=== PATIENT | female | born 1995 | race Caucasian/White ===

== ENCOUNTER 2024-03-21 04:00 | Inpatient (IN) | payer OTHER ==
[2024-03-21] MEDS: Lactated Ringer's 1,000 ML IV SCH (20:15)
[2024-03-21 20:23] VITALS: BMI 27.9
[2024-03-21] MEDS ORDERED: Lidocaine 1% (PF) 30 ML VIAL SC PRN (20:28)
[2024-03-21] MEDS ORDERED: HYDROcodone/Acetaminophen 5/325 mg Tablet PO PRN ×2 (20:28)
[2024-03-21] MEDS ORDERED: hydrALAZINE 20 MG/ML VIAL SLOW IVP PRN (20:28)
[2024-03-21] MEDS ORDERED: Ibuprofen 800 MG TAB PO PRN (20:28)
[2024-03-21] MEDS ORDERED: Ondansetron PF 4 MG/2 ML Vial IVP PRN (20:28)
[2024-03-21] MEDS ORDERED: Promethazine HCl 25 MG/ML VIAL IM PRN (20:28)
[2024-03-21 20:34] LABS: Hematocrit 35.9 % (34.9-44.5); Hemoglobin 12.3 g/dL (12.0-15.5); Mean Corpuscular HGB CONC 34.3 g/dL (32.0-36.0); Mean Corpuscular Hemoglobin 31.9 pg (27.0-33.0); Mean Platelet Volume 10.4 fl (7.4-10.4); Platelet Count 205 10x3/uL (150-450); RBC Distribution Width 13.8 % (11.5-14.5); Red Blood Cell (RBC) Count 3.86 10x6/uL (3.90-5.03); White Blood Cell (WBC) Count 10.6 10x3/uL (3.5-10.5)
[2024-03-21] MEDS: Misoprostol 100 MCG TAB VAG SCH (21:07)
[2024-03-21 21:53] LABS: HBsAg Index 0.19 S/CO (0-0.99); Hep B Surf Ag - L&D Non-Reactive S/CO (NonReactive)
[2024-03-21 21:54] LABS: Syphilis Antibody Nonreactive (Nonreactive); Syphilis Antibody Index 0.06 S/CO (<1.00 Non-Reactive)
[2024-03-22] MEDS ORDERED: Misoprostol 100 MCG TAB VAG SCH
[2024-03-22] MEDS: fentaNYL 50 mcg/mL 1 mL Vial SLOW IVP PRN (04:32)
[2024-03-22] MEDS: fentaNYL/Ropivacaine Epidural 100 ML ONE (05:26)
[2024-03-22] MEDS ORDERED: Lactated Ringer's 500 ML IV PRN (05:38)
[2024-03-22] MEDS ORDERED: ePHEDrine Sulfate 50 MG/10 ML VIAL SLOW IVP PRN (05:38)
[2024-03-22] MEDS ORDERED: Promethazine HCl 25 MG/ML VIAL IM PRN ×3 (05:38→17:56)
[2024-03-22] MEDS ORDERED: diphenhydrAMINE 50 MG/ML VIAL IVP PRN ×2 (05:38→15:15)
[2024-03-22] MEDS ORDERED: Acetaminophen 325 MG TAB PO PRN (05:38)
[2024-03-22] MEDS ORDERED: Ondansetron PF 4 MG/2 ML Vial IVP PRN ×5 (05:38→17:56)
[2024-03-22] MEDS ORDERED: Naloxone HCl 0.4 mg/ml Vial IVP PRN ×4 (05:38→15:15)
[2024-03-22] MEDS ORDERED: Moisturizing Cream (Eucerin) 113 GM JAR TOP PRN ×2 (05:38→15:15)
[2024-03-22] MEDS ORDERED: Communication Order-Pharmacy FS SCH ×2 (05:45→15:15)
[2024-03-22] MEDS ORDERED: fentaNYL 2 mcg/Ropivacaine 0.2% Epidural 100 ML CADD EPIDURAL SCH (05:45)
[2024-03-22] MEDS: Oxytocin 30 units/NS 500 ML 500 ML IV SCH ×2 (11:20→16:02)
[2024-03-22] MEDS: CEFAZOLIN 2 GM VIAL ONE (14:11)
[2024-03-22] MEDS: Famotidine/PF 20 mg/2ml Vial ONE (14:20)
[2024-03-22] MEDS: Oxytocin 10 UNITS/ML VIAL ONE ×2 (14:20→19:35)
[2024-03-22] MEDS ORDERED: Ketorolac Tromethamine 30 MG (1 mL) VIAL IVP PRN (15:15)
[2024-03-22] MEDS ORDERED: Naloxone HCl 0.4 mg/ml Vial IV PRN ×2 (15:15→17:56)
[2024-03-22] MEDS ORDERED: fentaNYL 50 mcg/mL 1 mL Vial SLOW IVP PRN (15:15)
[2024-03-22] MEDS ORDERED: Ketorolac Tromethamine 30 MG (1 mL) VIAL IVP SCH (15:30)
[2024-03-22] MEDS: Meperidine HCl/PF 25 MG (1 mL) VIAL SLOW IVP PRN (16:57)
[2024-03-22] MEDS ORDERED: Oxytocin 30 units/NS 500 ML 500 ML IV SCH (17:25)
[2024-03-22] MEDS ORDERED: diphenhydrAMINE 25 MG CAP PO PRN (17:25)
[2024-03-22] MEDS ORDERED: Lanolin Ointment 7 GM TUBE TOP PRN (17:25)
[2024-03-22] MEDS ORDERED: Bisacodyl 10 MG SUPP PR PRN (17:25)
[2024-03-22] MEDS ORDERED: hydrALAZINE 20 MG/ML VIAL SLOW IVP PRN (17:25)
[2024-03-22] MEDS: HYDROmorphone 0.5 MG/0.5 ML SYRINGE SLOW IVP PRN (18:11)
[2024-03-22] MEDS: Boostrix 0.5 ML (Tdap) VIAL (>/=7 yrs of age) IM ONE (18:15)
[2024-03-22] MEDS: Methylergonovine 0.2 MG/ML VIAL IM SCH (18:48)
[2024-03-22] MEDS: Tranexamic Acid 1,000 MG/10 ML VIAL IVP SCH (18:50)
[2024-03-22] MEDS: Chloroprocaine 3% PF 20 ML VIAL ONE (19:34)
[2024-03-22] MEDS: Dexamethasone 4 mg/ml Vial ONE (19:34)
[2024-03-22] MEDS: Morphine PF 10 MG/10 ML VIAL ONE (19:34)
[2024-03-22] MEDS: Azithromycin 500 MG VIAL ONE (19:35)
[2024-03-22] MEDS: Ondansetron PF 4 MG/2 ML Vial ONE (19:35)
[2024-03-22] MEDS: Tranexamic Acid 1,000 MG/10 ML VIAL ONE ×2 (19:36)
[2024-03-22] MEDS: Methylergonovine 0.2 MG/ML VIAL ONE (19:37)
[2024-03-22] MEDS: Docusate 100 MG CAP PO SCH (21:02)
[2024-03-22] MEDS: Ferrous Sulfate 325 MG TAB PO SCH (21:03)
[2024-03-22] MEDS ORDERED: Ibuprofen 800 MG TAB PO SCH (22:00)
[2024-03-23] MEDS: Ketorolac Tromethamine 30 MG (1 mL) VIAL IVP PRN (04:33)
[2024-03-23 05:24] LABS: Hematocrit 24.8 % (34.9-44.5)
[2024-03-23 05:25] LABS: Hemoglobin 8.4 g/dL (12.0-15.5); Mean Corpuscular HGB CONC 33.9 g/dL (32.0-36.0); Mean Corpuscular Hemoglobin 32.2 pg (27.0-33.0); Mean Platelet Volume 11.1 fl (7.4-10.4); Platelet Count 169 10x3/uL (150-450); RBC Distribution Width 13.8 % (11.5-14.5); Red Blood Cell (RBC) Count 2.61 10x6/uL (3.90-5.03); White Blood Cell (WBC) Count 16.4 10x3/uL (3.5-10.5)
[2024-03-23] MEDS: HYDROcodone/Acetaminophen 5/325 mg Tablet PO PRN ×2 (08:30→21:19)
[2024-03-23] MEDS: Prenatal Vitamin 1 TAB PO SCH (08:30)
[2024-03-23] MEDS: Simethicone Chewable 80 MG TAB PO PRN (17:27)
[2024-03-24] MEDS: Ibuprofen 800 MG TAB PO SCH ×2 (08:32→14:02)
[2024-03-25 08:07] VITALS: BP 123/79; TEMP 98.2
== END 2024-03-25 10:15 | disposition home or self-care (01) | DRG 787 ==
LOC: CSHLD 19:48 → CSHPP 03-22 17:05
PROVIDERS: ADMIT Obstetrics & Gynecology; ATTEND Obstetrics & Gynecology
PROC: 10907ZC Drainage of Amniotic Fluid, Therapeutic from Products of Conception, Via Natural or Artificial Opening (ICD-10-PCS; 2024-03-21)
PROC: 10H07YZ Insertion of Other Device into Products of Conception, Via Natural or Artificial Opening (ICD-10-PCS; 2024-03-21)
PROC: 3E0P7VZ Introduction of Hormone into Female Reproductive, Via Natural or Artificial Opening (ICD-10-PCS; 2024-03-21)
PROC: 10D00Z1 Extraction of Products of Conception, Low, Open Approach (ICD-10-PCS; principal; 2024-03-22)
PROC: 3E033XZ Introduction of Vasopressor into Peripheral Vein, Percutaneous Approach (ICD-10-PCS; 2024-03-22)
DX: O76 Abnormality in fetal heart rate and rhythm complicating labor and delivery (principal); D62 Acute posthemorrhagic anemia; Z31.83 Encounter for assisted reproductive fertility procedure cycle; Z3A.39 39 weeks gestation of pregnancy; Z37.0 Single live birth
CPT/HCPCS: 36415; 51702; 85027; 86780; 86850; 86900; 86901; 87340; J1100; J1170; J1885; J2175; J2210; J2274; J2401; J2405; J2590; J3010; J7120; S0028